=== PATIENT | female | born 1955 | race Caucasian/White ===

== ENCOUNTER 2019-05-07 16:28 | Emergency (ER) | payer BC ==
[~2019-05-07] VITALS: Ht 177.8 cm; Wt 97.5 kg
--- OUTSIDE RECORDS SUMMARY | ~2019-05-07 | XMS | Clinical Summary ---
Demographics + + + | Address | [address] | | | [place] [address] | + + + | Home Phone | | + + + | Preferred Language | Unknown | + + + | Marital Status | | + + + | Adventism Affiliation | 1077 | + + + | Race | Unknown | + + + | Ethnic Group | Unknown | + + + Author + + + | Author | [facility] | | | and [place] | + + + | Organization | [facility] | | | and [place] | + + + | Address | Unknown | + + + | Phone | Unavailable | + + + Support + + + + + | Name | Relationship | Address | Phone | + + + + + | Elva Smith | ECON | NA | | | | | [place], [place] | | + + + + + | Nolan Rhoades | ECON | NA | | | | | [place] [address] | | + + + + + Care Team Providers + +------+ + | Care Private Tutor Name | Role | Phone | + +------+ + | Doroteo Walter DO | PCP | Unavailable | + +------+ + Allergies + + + + + + | Active Allergy | Reactions | Severity | Noted | Comments | | | | | Date | | + + + + + + | Codeine Sulfate | | | 07/06/20 | | | | | | 10 | | + + + + + + | Novocain | | | 07/06/20 | | | | | | 10 | | + + + + + + Medications + + + +---------+------+------+-------+ | Medication | Sig | Dispensed | Refills | Star | End | Statu | | | | | | t | Date | s | | | | | | Date | | | + + + +---------+------+------+-------+ | pantoprazole | Take 40 mg by mouth | | 0 | 06/24 | | Activ | | (PROTONIX) 40 mg | Daily. | | | 10/11 | | e | | tablet | | | | 10 | | | + + + +---------+------+------+-------+ | meloxicam (MOBIC) | Take 7.5 mg by mouth | | 0 | 12/1 | | Activ | | 7.5 mg tablet | 2 times daily. | | | 3/20 | | e | | | | | | 10 | | | + + + +---------+------+------+-------+ | cyclobenzaprine | Take 10 mg by mouth | | 0 | 12/1 | | Activ | | (FLEXERIL) 10 mg | as needed. | | | 3/20 | | e | | tablet | | | | 10 | | | + + + +---------+------+------+-------+ | buPROPion | Take 300 mg by mouth | | 0 | 12/1 | | Activ | | (WELLBUTRIN XL) 300 | Daily. | | | 3/20 | | e | | mg 24 hr tablet | | | | 10 | | | + + + +---------+------+------+-------+ | ACYCLOVIR PO | TABS - one by mouth | | 0 | 12/1 | | Activ | | | twice daily | | | 3/20 | | e | | | | | | 10 | | | + + + +---------+------+------+-------+ | estradiol | Take 2 mg by mouth | | 0 | 12/1 | | Activ | | (ESTRACE) 2 MG | Daily. | | | 3/20 | | e | | tablet | | | | 10 | | | + + + +---------+------+------+-------+ | folic acid 1 mg | Take 1 mg by mouth | | 0 | 12/1 | | Activ | | tablet | Daily. | | | 3/20 | | e | | | | | | 10 | | | + + + +---------+------+------+-------+ | B Complex Vitamins | one by mouth daily | | 0 | 12/1 | | Activ | | (B COMPLEX-B12) | | | | 3/20 | | e | | TABS | | | | 10 | | | + + + +---------+------+------+-------+ | cetirizine (ZYRTEC | Take 10 mg by mouth | | 0 | 12/1 | | Activ | | ALLERGY) 10 mg | Daily. | | | 3/20 | | e | | tablet | | | | 10 | | | + + + +---------+------+------+-------+ | | 1/2 by mouth daily | | 0 | 12/1 | | Activ | | lisinopril-hydrochlo | | | | 3/20 | | e | | rothiazide | | | | 10 | | | | (PRINZIDE,ZESTORETIC | | | | | | | | ) 20-25 MG per | | | | | | | | tablet | | | | | | | + + + +---------+------+------+-------+ | Garlic 500 MG CAPS | Take 500 mg by mouth | | 0 | 12/1 | | Activ | | | 2 times daily. | | | 3/20 | | e | | | | | | 10 | | | + + + +---------+------+------+-------+ | [place]-3 Fatty | CPDR - one by mouth | | 0 | 12/1 | | Activ | | Acids (OMEGA 3 PO) | daily | | | 3/20 | | e | | | | | | 10 | | | + + + +---------+------+------+-------+ | Calcium | TABS - one by mouth | | 0 | 12/1 | | Activ | | Carbonate-Vitamin D | daily | | | 3/20 | | e | | (CALCIUM + D PO) | | | | 10 | | | + + + +---------+------+------+-------+ | traMADol (ULTRAM) | Take 100 mg by mouth | | 0 | | | Activ | | 50 mg tablet | every 6 hours as | | | | | e | | | needed. | | | | | | + + + +---------+------+------+-------+ | phentermine 37.5 | | | 0 | | | Activ | | MG capsule | | | | | | e | + + + +---------+------+------+-------+ Active Problems + + + | Problem | Noted Date | + + + | CONSTIPATION | | + + + | RECTAL BLEEDING | | + + + Family History + + +------+ + | Medical History | Relation | Name | Comments | + + +------+ + | Alcohol abuse | Father | | | + + +------+ + | Cancer | Father | | | + + +------+ + | Hypertension | Father | | | + + +------+ + | Stroke | Father | | | + + +------+ + | Allergies | Mother | | | + + +------+ + | Cancer | Mother | | | + + +------+ + + +------+--------+ + | Relation | Name | Status | Comments | + +------+--------+ + | Father | | | | + +------+--------+ + | Mother | | | | + +------+--------+ + Social History + +-------+ +--------+------+ | Tobacco Use | Types | Packs/Day | Years | Date | | | | | Used | | + +-------+ +--------+------+ | Current Every Day | | | 0.5 | | | Smoker | | | | | + +-------+ +--------+------+ + + +---------+ + | Alcohol Use | Drinks/We | oz/Week | Comments | | | ek | | | + + +---------+ + | No | | | | + + +---------+ + + + + | Sex Assigned at | Date Recorded | | | | + + + | Not on file | | + + + + + + + | Job Start Date | Occupation | Industry | + + + + | Not on file | Not on file | Not on file | + + + + + + + + | Travel History | Travel Start | Travel End | + + + + + + | No recent travel history available. | + + Last Filed Vital Signs + + + + | Vital Sign | Reading | Time Taken | + + + + | Blood Pressure | 130/72 | 11/21/2012 1310 PDT | + + + + | Pulse | 72 | 11/21/2012 1310 PDT | + + + + | Temperature | 36.4 C (97.6 F) | 11/21/20121309 PDT | + + + + | Respiratory Rate | - | - | + + + + | Oxygen Saturation | 99% | 11/21/20121309 PDT | + + + + | Inhaled Oxygen | - | - | | Concentration | | | + + + + | Weight | 93.4 kg (206 lb) | 11/21/20121309 PDT | + + + + | Height | 180.3 cm (5' 11") | 11/21/20121309 PDT | + + + + | Body Mass Index | 28.73 | 11/21/2012 1310 PDT | + + + + Plan of Treatment + + + + + | Health Maintenance | Due Date | Last Done | Comments | + + + + + | Vaccine: | | | | | Dtap/Tdap/Td (1 - | 3 | | | | Tdap) | | | | + + + + + | Vaccine: Zoster (1 | | | | | of 2) | 4 | | | + + + + + | Breast Cancer | | | | | Screening | 9 | | | + + + + + | Vaccine: | | | | | Pneumococcal 65+ | 9 | | | | Low/Medium Risk (1 | | | | | of 2 - PCV13) | | | | + + + + + | Vaccine: Influenza | | | | | (#1) | 9 | | | + + + + + Results Not on filefrom Last 3 Months Insurance +---------+--------+ +--------+ +---------+------+ | Payer | Benefi | Subscriber | Effect | Phone | Address | Type | | | t Plan | ID | sidney | | | | | | / | | Dates | | | | | | Group | | | | | | +---------+--------+ +--------+ +---------+------+ | [employer] | [employer] | [id number] | 07/25/19 | [phone] | | PPO | | | E [employer] | 1 | 13-Pre | 8 | | | | | [place] | | sent | | | | | | P[place] | | | | | | +---------+--------+ +--------+ +---------+------+ + +--------+ +--------+ + + | Guarantor Name | Accoun | Relation to | Date | Phone | Billing Address | | | t Type | Patient | of | | | | | | | | | | + +--------+ +--------+ + + | Tiffany [place] | Person | Self [birth year] | [address] | | | al/[place] | | 1956 | [phone] | [place] [address] | | | [place]ichi | | | 9 (Home) | | | | | | | [phone] | | | | | | | 9 (Work) | | + +--------+ +--------+ + + Advance Directives Patient has advance care planning documents on file. For more information, please contact:[facility] [place] [address]
--- OUTSIDE RECORDS SUMMARY | ~2019-05-07 | XMS | Clinical Summary ---
Demographics + + + | Address | [address] | | | [place] [address] | + + + | Home Phone | | + + + | Preferred Language | Unknown | + + + | Marital Status | | + + + | Anabaptism Affiliation | 1077 | + + + | Race | Unknown | + + + | Ethnic Group | Unknown | + + + Author + + + | Author | [facility] | | | and [place] | + + + | Organization | [facility] | | | and [place] | [...] | | | | | [place] [address] | | + + + + + Care Team Providers + +------+ + | Care Metal Leaf Layer Name | Role | Phone | + [...] | | + + + +---------+------+------+-------+ | [place] Fatty | CPDR - one by mouth [...] | | t Plan | ID | sideny | | | | | | / | | Dates | | | | | | Group | | | | | | +---------+--------+ +--------+ +---------+------+ | [employer] | [employer] | [id number] | 07/25/19 | [phone] | | PPO [...] | Self | [birth year] | [address] | | | [birth year] | | 1956 | [phone] | [place] [address] | | | [place] | | | 9 (Home) | | | | | | | [phone] | | | | | | | 9 (Work) | | + +--------+ +--------+ + + Advance Directives Patient has advance care planning documents on file. For more information, please contact:[facility] [place] [address]
[2019-05-07] MEDS ORDERED: GRALISE300 MG PO (16:50)
[2019-05-07] MEDS ORDERED: PANTOPRAZOLE SO40 MG PO (16:51)
[2019-05-07] MEDS ORDERED: ARMODAFINIL50 MG PO (16:51)
[2019-05-07] MEDS ORDERED: LISINOPRIL-HCT1 EAC1 PO ×2 (16:52→18:19)
[2019-05-07] MEDS ORDERED: ESTRACE2 MG PO (16:52)
[2019-05-07] MEDS ORDERED: FOLIC ACID1 MG PO (16:53)
[2019-05-07] MEDS ORDERED: ACYCLOVIR200 MG PO (16:53)
[2019-05-07] MEDS ORDERED: MELOXICAM7.5 MG PO (16:53)
[2019-05-07] MEDS ORDERED: ESCITALOPRAM OX10 MG PO (16:54)
[2019-05-07] MEDS ORDERED: FISH OIL 1,0001 EAC2 NG (16:54)
[2019-05-07] MEDS ORDERED: GARLIC1000 MG PO (16:54)
[2019-05-07] MEDS ORDERED: VITAMIN D31000 UNIT PO (16:55)
[2019-05-07] MEDS ORDERED: L-LYSINE500 M2 PO (16:56)
[2019-05-07] MEDS ORDERED: CALCIUM CITRAT1 EA14 PO (16:56)
[2019-05-07] MEDS ORDERED: SUPER B MAXI C0.4 MG PO (16:56)
[2019-05-07] MEDS ORDERED: MAGNESIUM400 MG PO (16:57)
[2019-05-07] MEDS ORDERED: VITAMIN C1000 MG PO (16:57)
[2019-05-07] MEDS ORDERED: ZOVIRAX200 MG PO (18:19)
== END 2019-05-07 18:44 | disposition home or self-care (01) ==
LOC: ED 16:28
DX: I10 Essential (primary) hypertension (principal); Z88.5 Allergy status to narcotic agent; Z88.8 Allergy status to other drugs, medicaments and biological substances; Z79.899 Other long term (current) drug therapy
CPT/HCPCS: 99283; 99406

== ENCOUNTER 2020-04-21 07:15 | Day surgery (SDC) | payer BC ==
[~2020-04-21] VITALS: Ht 180.3 cm; Wt 95.2 kg
--- NOTE | ~2020-04-21 | OR ---
[facility] [address] [place], [place] [address] Draft DATE OF OPERATION: 04/21/2020 SURGEON: Leticia Liang MD PREOPERATIVE DIAGNOSIS: Episodic rectal discharge and self described "irritable bowel syndrome." POSTOPERATIVE DIAGNOSES: 1. Diverticulosis. 2. Internal hemorrhoids. PROCEDURE: Total colonoscopy to cecum. ANESTHESIA: Intravenous sedation, fentanyl 100 mcg and Versed 5 mg. INDICATIONS: This 64-year-old white woman is a patient of Dr. Ghislaine Dexter, has some rectal discharge without blood and no family history of colon cancer. She has underlying diagnosis of self described "irritable bowel syndrome." She is admitted at this time to undergo colonoscopy on that basis. She last underwent colonoscopy in [address] Hannon in [place]. The patient has a long-standing diagnosis of lipomatous dermatosclerosis associated with neuropathy, for which she takes gabapentin. She is admitted at this time to undergo colonoscopy. She understands the risks of bleeding, infection, and perforation. FINDINGS: The prep was good. Complete colonoscopy was undertaken to the cecum. The diverticula scattered throughout the colon, but most dominantly in the sigmoid and left colon. She had internal hemorrhoids as well. There was no sign of colitis or polyps. I suspect her rectal discharge is related to her hemorrhoidal issue. DESCRIPTION OF PROCEDURE: The patient was brought to the endoscopy suite and placed in lateral decubitus position given intravenous sedation to the point of slurred speech and nystagmus. Digital rectal examination was normal. An Olympus video colonoscope was passed into the rectum and manipulated throughout the colon, noting diverticula of the sigmoid and left colon and scattered diverticula PATIENT NAME: ANA LAURA TANNER OPERATIVE REPORT DATE OF : 51 REPORT #: [id number] PHYSICIAN: LETICIA LIANG MD PCP: GHISLAINE DEXTER MD REPORT IS CONFIDENTIAL AND NOT TO BE RELEASED WITHOUT AUTHORIZATION [facility] [address] [place], [place] [address] Draft through the remaining colon. The scope was easily passed to the cecum. Ileocecal valve and appendiceal orifice were normal. The scope was withdrawn from that point. Examination throughout showed no sign of polyps or colitis, only diverticula episodically. Retroflexed view confirmed internal hemorrhoids. There was no sign of bleeding. Scope was removed. The patient was taken to the recovery room in good condition. CONCLUDING DIAGNOSES: 1. Diverticulosis. 2. Internal hemorrhoids. PLAN: We would recommend a high-fiber diet or fiber supplement such as Citrucel one scoop daily. This may improve her symptoms, firming up the stool and so on. She will return to the ongoing care of Dr. Dexter otherwise. MD FROY Abdul/DARIEN /[id number] Copies: ~ PATIENT NAME: ANA LAURA TANNER OPERATIVE REPORT DATE OF : 51 REPORT #: [id number] PHYSICIAN: LETICIA LIANG MD PCP: GHISLAINE DEXTER MD REPORT IS CONFIDENTIAL AND NOT TO BE RELEASED WITHOUT AUTHORIZATION
[~2020-04-21 07:15] MED LIST: ACYCLOVIR200 MG PO; ARMODAFINIL50 MG PO; CALCIUM CITRAT1 EA14 PO; ESCITALOPRAM OX10 MG PO; ESTRACE2 MG PO; FISH OIL 1,0001 EAC2 NG; FOLIC ACID1 MG PO; GARLIC1000 MG PO; GRALISE300 MG PO; L-LYSINE500 M2 PO; LISINOPRIL-HCT1 EAC1 PO; MAGNESIUM400 MG PO; MELOXICAM7.5 MG PO; PANTOPRAZOLE SO40 MG PO; SUPER B MAXI C0.4 MG PO; VITAMIN C1000 MG PO; VITAMIN D31000 UNIT PO; ZOVIRAX200 MG PO
--- NOTE | 2020-04-21 08:57 | NUR ---
04/21/20 0857 Emilie Beyer 0846 PT ARRIVED IN PACU SLEEPY WITH NO C/O'S. ABD SOFT. 0855 RESTING. REU.
== END 2020-04-21 09:30 | disposition home or self-care (01) ==
LOC: DS 07:15 → OPS 07:15 → DS 07:17
PROVIDERS: ATTEND Surgery
PROC: 0DJD8ZZ Inspection of Lower Intestinal Tract, Via Natural or Artificial Opening Endoscopic (ICD-10-PCS; principal; 2020-04-21 08:45)
DX: K64.8 Other hemorrhoids (principal); K57.30 Diverticulosis of large intestine without perforation or abscess without bleeding; I10 Essential (primary) hypertension; F32.9 Major depressive disorder, single episode, unspecified; F17.210 Nicotine dependence, cigarettes, uncomplicated; Z88.5 Allergy status to narcotic agent; Z79.899 Other long term (current) drug therapy
CPT/HCPCS: G0500; J2250; J3010